=== PATIENT | female | born 1980 | race Two or more races ===

== ENCOUNTER 2021-12-02 06:05 | Inpatient (IN) | payer SELFPAY ==
[~2021-12-02] VITALS: Ht 157.5 cm; Wt 78.2 kg
[2021-12-02] MEDS ORDERED: IV RINGERS,LACTATED 1000ML 1,000 ML IV SCH (06:15)
[2021-12-02 06:45] VITALS: BP 120/72
[2021-12-02] MEDS ORDERED: TERBUTALINE 1 MG/ML VIAL. SQ PRN (06:45)
[2021-12-02] MEDS ORDERED: OXYTOCIN 30 UNIT/500 ML PREMIX 500 ML IV PRN ×3 (06:45→14:30)
[2021-12-02] MEDS ORDERED: fentaNYL PF VIAL 100 MCG/2 ML VIAL IVP PRN (06:45)
[2021-12-02] MEDS ORDERED: LIDOCAINE 1% PF 30 ML VIAL. INJ PRN (06:45)
[2021-12-02] MEDS: IV RINGERS,LACTATED 1000ML 1,000 ML IV SCH ×3 (06:45→22:45)
[2021-12-02] MEDS ORDERED: BUTORPHANOL 2 MG/ML VIAL. IVP PRN ×2 (06:45)
[2021-12-02] MEDS ORDERED: IBUPROFEN 400 MG TABLET. PO PRN (06:45)
[2021-12-02] MEDS ORDERED: 0.9 % SODIUM CHLORIDE 10 ML DISP.SYRIN. IV PRN ×2 (06:45→14:30)
[2021-12-02 07:53] LABS: BASO % 0 % (0-3); EOS % 0 % (0-3); HEMOGLOBIN 7.5 g/dL (12.0-15.5); LYMPH # 0.6 x10^3/uL (1.0-4.8); LYMPH % 7 % (24-48); MEAN CORPUSCULAR HEMOGLOBIN 22 pg (25-35); MEAN CORPUSCULAR HGB CONC 31 g/dL (31-37); MEAN CORPUSCULAR VOLUME 69 fL (79-100); MONO # 0.4 x10^3/uL (0.0-1.1); MONO % 5 % (0-9); NEUT # 6.9 x10^3/uL (1.8-7.7); NEUT % 88 % (31-73); PLATELET COUNT 193 x10^3/uL (140-400); RED BLOOD COUNT 3.51 x10^6/uL (3.50-5.40); RED CELL DISTRIBUTION WIDTH 21.2 % (11.5-14.5); WHITE BLOOD COUNT 7.9 x10^3/uL (4.0-11.0)
[2021-12-02] MEDS ORDERED: OXYTOCIN PREMIX 30 UNIT/500 ML NS BAG. IV ONE (09:30)
[2021-12-02 09:48] LABS: ANISOCYTOSIS PRESENT; MICROCYTOSIS SLIGHT; OVALOCYTES PRESENT; PLT ESTIMATE ADEQUATE (ADEQUATE); POLYCHROMASIA PRESENT
[2021-12-02] MEDS ORDERED: METHYLERGONOVINE MALEATE 0.2 MG/ML VIAL. IM ONE ×2 (10:08→10:30)
[2021-12-02] MEDS ORDERED: miSOPROStol 200 MCG TABLET. ONE (10:08)
[2021-12-02] MEDS ORDERED: miSOPROStol 200 MCG TABLET. PR ONE (10:30)
[2021-12-02 13:40] VITALS: BP 108/68
--- NOTE | 2021-12-02 14:14 | PDOC1 ---
[facility] H&P Date of Admission: Date of Admission: Dec 02, 2021 at 06:15 History of Present Illness: 40yo presents to L&D @ 37.6 weeks with complaints of increased frequency and intensity of UC. SVE upon arrival 3cm with progressive change to 5cm - subsequently admitted for spontaneous labor. complicated by GDM - diet controlled. Late/limited PNC. Anemia. AMA. + Trich 10/03, treated 11/04. Pelvis proven to 7lb 8oz. PMH otherwise unremarkable. Pertinent labs: O+, ab neg. RPR NR. RI. . Hep B/C Neg. HIV Neg. H&H: 7.03/06. GBS unknown. PCN allergic. Past Medical History: PMH: Unremarkable. Cardiovascular: No pertinent hx Pulmonary: No pertinent hx GI: No pertinent hx Heme/Onc: No pertinent hx Hepatobiliary: No pertinent hx Psych: No pertinent hx Rheumatologic: No pertinent hx Infectious disease: No pertinent hx ENT: No pertinent hx Renal/: No pertinent hx Dermatology: No pertinent hx Grav: 4 Para: 3 Social History: Smoke: No ALCOHOL: none Drugs: None Medications: Meds: Current Medications Medications (Trade) Dose Ordered Sig/Su Route PRN Reason Start Time Stop Time Status Last Admin Dose Admin Ringer's Solution 1,000 ml @ 125 mls/hr Q8H IV 12/02/21 06:15 12/02/21 11:05 DC 12/02/21 07:21 Butorphanol Tartrate (Stadol) 1 mg PRN Q1HR PRN IVP mild to moderate labor pain 12/02/21 06:45 12/02/21 11:05 DC 12/02/21 07:37 Fentanyl Citrate (Fentanyl 2ml Vial) 100 mcg PRN Q30MIN PRN IVP Severe pain 12/02/21 06:45 12/02/21 10:21 Lidocaine HCl (Xylocaine 1% Pf 30ml Vial) 30 ml 1X PRN PRN INJ SEE COMMENTS 12/02/21 06:45 12/04/21 06:44 12/02/21 10:29 Ibuprofen (Motrin) 800 mg PRN Q6HRS PRN PO PAIN 12/02/21 06:45 12/02/21 13:50 Misoprostol (Cytotec 200mcg Tab) 800 mcg 1X ONCE RI 12/02/21 10:30 12/02/21 10:31 DC 12/02/21 10:30 Methylergonovine Maleate (Methergine) 0.2 mg 1X ONCE IM 12/02/21 10:30 12/02/21 10:31 DC 12/02/21 10:29 Allergies: Coded Allergies: Penicillins (Verified Allergy, Intermediate, Itching, 12/02/21) amoxicillin (Verified Allergy, Intermediate, Itching, 12/02/21) Physical Exam: Vital Signs: Vital Signs Date Time Temp Pulse Resp B/P (MAP) Pulse Ox O2 Delivery O2 Flow Rate FiO2 12/02/21 10:21 18 Room Air 12/02/21 06:45 98.0 81 120/72 (88) 98.0 PE: GENERAL: No apparent distress. Alert and oriented. HEENT: Head normocephalic, atraumatic. NECK: Supple LUNGS: Clear to auscultation. HEART: RRR, S1, S2 present, pulses intact ABDOMEN: Soft, positive bowel sounds. EXTREMITIES: No cyanosis or edema. NEUROLOGIC: Normal speech, normal tone PSYCHIATRIC: Normal affect, normal mood. SKIN: No ulceration. Labs: Laboratory Tests Test 12/02/21 07:10 12/02/21 08:00 White Blood Count 7.9 x10^3/uL (4.0-11.0) Red Blood Count 3.51 x10^6/uL (3.50-5.40) Hemoglobin 7.5 g/dL (12.0-15.5) L Hematocrit 24.0 % (36.0-47.0) L Mean Corpuscular Volume 69 fL (79-100) L Mean Corpuscular Hemoglobin 22 pg (25-35) L Mean Corpuscular Hemoglobin Concent 31 g/dL (31-37) Red Cell Distribution Width 21.2 % (11.5-14.5) H Platelet Count 193 x10^3/uL (140-400) Neutrophils (%) (Auto) 88 % (31-73) H Lymphocytes (%) (Auto) 7 % (24-48) L Monocytes (%) (Auto) 5 % (0-9) Eosinophils (%) (Auto) 0 % (0-3) Basophils (%) (Auto) 0 % (0-3) Neutrophils # (Auto) 6.9 x10^3/uL (1.8-7.7) Lymphocytes # (Auto) 0.6 x10^3/uL (1.0-4.8) L Monocytes # (Auto) 0.4 x10^3/uL (0.0-1.1) Eosinophils # (Auto) 0.0 x10^3/uL (0.0-0.7) Basophils # (Auto) 0.0 x10^3/uL (0.0-0.2) Platelet Estimate Adequate (ADEQUATE) Polychromasia Present Anisocytosis Present Microcytosis Slight Ovalocytes Present Glucose Level 96 mg/dL (70-99) Treponema pallidum Antibody Nonreactive (Nonreactive) SARS-CoV-2 Antigen (Rapid) Negative (NEGATIVE) Laboratory Tests 12/02/21 07:10 Laboratory Tests 12/02/21 07:10 Laboratory Tests 12/02/21 07:10 Assessment & Plan: 40yo 1. IUP @ 37.6 weeks 2. Spontaneous labor 3. A1GDM, glucose 96 4. + Trich, no ARANZA 5. GBS unknown 6. Declined Flu, TDaP and Covid vaccine 7. Cat I FHT NAM LESLIE Jennifer KENNEDY Dec 02, 2021 14:14
--- NOTE | 2021-12-02 14:20 | PDOC4 ---
VAGINAL DELIVERY DATE DATE: 12/02/21 TIME: 14:14 TIME 0958 : 4 Para: 3 EDC: Dec 09, 2021 EGA: 39.0 VAGINAL DELIVERY: VTX VACCUM ASSISTED: No PLACENTA: Manual SEX: Male WEIGHT Weight [[id number]] Nuchal Cord: No Amniotic Fluid: Clear PAIN: Natural EPISIOTOMY: No REPAIRED WITH 2nd degree perineal lac repaired with 3-0 Vicryl in the standard fashion with complete hemostasis and good anatomic result. EBL 500mL COMPLICATIONS Cord avulsed with gentle traction. Placenta manually removed, appearing grossly intact. MEU performed. Pitocin, Cytotec, and Methergine administered prophylact ically 2/2 significant anemia and manual removal of placenta. Fundus firm, scant lochia. CONDITION Both mother and infant stable following delivery, anticipate routine PP course. ADDITIONAL NOTES Placenta to path 2/2 irregular shape, marginal cord insertion site. Signs of Intrauterine Infectio: None Shoulder Dystocia: No DIAGNOSIS NAM LESLIE CNM Dec 02, 2021 14:20
[2021-12-02] MEDS ORDERED: MAGNESIUM HYDROXIDE 2,400 MG/30 ML ORAL.SUSP. PO PRN (14:30)
[2021-12-02] MEDS ORDERED: TDaP (BOOSTRIX) per PROTOCOL. MC PRN (14:30)
[2021-12-02] MEDS ORDERED: ACETAMINOPHEN 325 MG TABLET. PO PRN (14:30)
[2021-12-02] MEDS ORDERED: BENZOCAINE 20% TOPICAL AEROSOL SPRAY 57GM CAN. TP PRN (14:30)
[2021-12-02] MEDS ORDERED: HYDROCORTISONE 1% TOPICAL OINTMENT 30GM TUBE. TP PRN (14:30)
[2021-12-02] MEDS ORDERED: SIMETHICONE 80 MG TAB.CHEW PO PRN (14:30)
[2021-12-02] MEDS ORDERED: MMR per PROTOCOL. MC PRN (14:30)
[2021-12-02] MEDS ORDERED: oxyCODONE/APAP 5/325 1 TAB TABLET PO PRN (14:30)
[2021-12-02] MEDS ORDERED: diphenhydrAMINE HCL 25 MG CAPSULE PO PRN (14:30)
[2021-12-02] MEDS ORDERED: PHENYLEPH/MINERAL OIL/PETROLAT RECTAL OINTMENT TUBE. RC PRN (14:30)
[2021-12-02] MEDS ORDERED: MAG HYDROX/ALUMINUM HYD/SIMETH 30 ML ORAL.SUSP PO PRN (14:30)
[2021-12-02 18:00] VITALS: BP 99/63
[2021-12-02] MEDS: FERROUS SULFATE 325 MG TABLET. PO SCH (18:31)
[2021-12-02] MEDS: METHYLERGONOVINE MALEATE 0.2 MG TABLET PO SCH (18:31)
[2021-12-02] MEDS: DOCUSATE SODIUM 100 MG CAPSULE. PO PRN (18:31)
[2021-12-02 20:00] VITALS: BP 108/54
[2021-12-03] VITALS (13 sets, daily range): BP systolic 89–114; BP diastolic 53–71
[2021-12-03] MEDS: METHYLERGONOVINE MALEATE 0.2 MG TABLET PO SCH ×3 (00:12→12:01)
[2021-12-03] MEDS: IBUPROFEN 400 MG TABLET. PO PRN ×3 (00:14→22:21)
[2021-12-03 03:09] LABS: HEMOGLOBIN A1C 5.3 % (4.8-5.6)
[2021-12-03] MEDS: DOCUSATE SODIUM 100 MG CAPSULE. PO PRN ×2 (06:29→22:21)
[2021-12-03] MEDS: IV RINGERS,LACTATED 1000ML 1,000 ML IV SCH ×3 (06:45→22:45)
[2021-12-03 07:15] LABS: BASO % 0 % (0-3); EOS % 0 % (0-3); HEMATOCRIT 21.2 % (36.0-47.0); LYMPH # 1.1 x10^3/uL (1.0-4.8); LYMPH % 14 % (24-48); MEAN CORPUSCULAR HEMOGLOBIN 21 pg (25-35); MEAN CORPUSCULAR HGB CONC 31 g/dL (31-37); MEAN CORPUSCULAR VOLUME 70 fL (79-100); MONO # 0.4 x10^3/uL (0.0-1.1); MONO % 6 % (0-9); NEUT # 6.1 x10^3/uL (1.8-7.7); NEUT % 80 % (31-73); PLATELET COUNT 173 x10^3/uL (140-400); RED BLOOD COUNT 3.05 x10^6/uL (3.50-5.40); WHITE BLOOD COUNT 7.6 x10^3/uL (4.0-11.0)
[2021-12-03 07:20] LABS: HEMOGLOBIN 6.5 g/dL (12.0-15.5)
[2021-12-03] MEDS: MULTIVITAMIN with MINERAL TABLET. PO SCH (08:32)
[2021-12-03] MEDS: FERROUS SULFATE 325 MG TABLET. PO SCH ×3 (08:32→17:00)
[2021-12-03] MEDS: oxyCODONE/APAP 5/325 1 TAB TABLET PO PRN ×2 (08:36→14:19)
--- NOTE | 2021-12-03 09:35 | PDOC ---
[employer] PROGRESS NOTE Date of Service: DATE: 12/03/21 TIME: 09:34 Subjective: Pt with good pain control. Samira PO. Voiding. Minimal lochia. Objective: Vital Signs: Vital Signs Date Time Temp Pulse Resp B/P (MAP) Pulse Ox O2 Delivery O2 Flow Rate FiO2 12/02/21 07:37 20 12/02/21 10:21 Room Air 12/02/21 13:40 98.0 80 108/68 (81) 98.0 12/02/21 20:00 95 Vital Signs Date Time Temp Pulse Resp B/P (MAP) Pulse Ox O2 Delivery O2 Flow Rate FiO2 12/03/21 08:36 16 Room Air 12/03/21 07:45 98.5 77 102/70 (81) 99 98.5 Labs: Laboratory Tests Test 12/03/21 06:40 White Blood Count 7.6 x10^3/uL (4.0-11.0) Red Blood Count 3.05 x10^6/uL (3.50-5.40) L Hemoglobin 6.5 g/dL (12.0-15.5) *L Hematocrit 21.2 % (36.0-47.0) L Mean Corpuscular Volume 70 fL (79-100) L Mean Corpuscular Hemoglobin 21 pg (25-35) L Mean Corpuscular Hemoglobin Concent 31 g/dL (31-37) Red Cell Distribution Width 22.0 % (11.5-14.5) H Platelet Count 173 x10^3/uL (140-400) Neutrophils (%) (Auto) 80 % (31-73) H Lymphocytes (%) (Auto) 14 % (24-48) L Monocytes (%) (Auto) 6 % (0-9) Eosinophils (%) (Auto) 0 % (0-3) Basophils (%) (Auto) 0 % (0-3) Neutrophils # (Auto) 6.1 x10^3/uL (1.8-7.7) Lymphocytes # (Auto) 1.1 x10^3/uL (1.0-4.8) Monocytes # (Auto) 0.4 x10^3/uL (0.0-1.1) Eosinophils # (Auto) 0.0 x10^3/uL (0.0-0.7) Basophils # (Auto) 0.0 x10^3/uL (0.0-0.2) Laboratory Tests 12/03/21 06:40 Laboratory Tests 12/03/21 06:40 Physical Exam: GENERAL: No apparent distress. Alert and oriented. HEENT: Head normocephalic, atraumatic. NECK: Supple LUNGS: Clear to auscultation. HEART: RRR, S1, S2 present, pulses intact ABDOMEN: Soft, positive bowel sounds. EXTREMITIES: No cyanosis or edema. NEUROLOGIC: Normal speech, normal tone PSYCHIATRIC: Normal affect, normal mood. SKIN: No ulceration. FFNT below umb No C/C/E Assessment & Plan: A/P 40y PPD #1 s/p 1.) PP doing well 2.) Mild ventriculomegaly peds aware 3.) Anemia - Hgb 7.5 -> 6.5, will give 1U pRBC 4.) PCN All 5.) A1DM 6.) cHTN - BP nml to mild throughout hospitalization 7.) Cont PP care NATA ALTMAN MD Dec 03, 2021 09:35
[2021-12-03 18:15] LABS: BASO % 0 % (0-3); EOS % 0 % (0-3); HEMOGLOBIN 8.7 g/dL (12.0-15.5); LYMPH # 1.2 x10^3/uL (1.0-4.8); LYMPH % 13 % (24-48); MEAN CORPUSCULAR HEMOGLOBIN 23 pg (25-35); MEAN CORPUSCULAR HGB CONC 32 g/dL (31-37); MEAN CORPUSCULAR VOLUME 71 fL (79-100); MONO # 0.5 x10^3/uL (0.0-1.1); MONO % 5 % (0-9); NEUT # 7.2 x10^3/uL (1.8-7.7); NEUT % 81 % (31-73); PLATELET COUNT 214 x10^3/uL (140-400); RED BLOOD COUNT 3.79 x10^6/uL (3.50-5.40); RED CELL DISTRIBUTION WIDTH 22.5 % (11.5-14.5); WHITE BLOOD COUNT 8.9 x10^3/uL (4.0-11.0)
[2021-12-04 04:48] VITALS: BP 87/56
--- NOTE | 2021-12-04 04:56 | NUR ---
Patient found sleeping in bed with wedged between her and a pillow. Infants face was against mothers bare breast. Patient told earlier in the night that she needed to put baby in crib if she gets tired. Woke up patient and told her that she can not sleep with baby and took baby and placed him in his crib. I then told her I was taking him to the nursery to do his labs. Pt instructed to get sleep while the was in nursery. Provided pt with PKU information sheet (in Slovak) that I printed of the [facility] website.
[2021-12-04] MEDS: MULTIVITAMIN with MINERAL TABLET. PO SCH (08:58)
[2021-12-04] MEDS: IBUPROFEN 400 MG TABLET. PO PRN (08:59)
[2021-12-04] MEDS: FERROUS SULFATE 325 MG TABLET. PO SCH (08:59)
[2021-12-04 09:20] VITALS: BP 100/69
[2021-12-04] MEDS ORDERED: DOCU-109 PO (10:00)
[2021-12-04] MEDS ORDERED: FERR325T14 PO (10:00)
[2021-12-04] MEDS ORDERED: IBUP-1060 PO (10:00)
[2021-12-04 10:39] LABS: BASO % 1 % (0-3); EOS % 1 % (0-3); HEMOGLOBIN 7.5 g/dL (12.0-15.5); LYMPH # 0.8 x10^3/uL (1.0-4.8); LYMPH % 11 % (24-48); MEAN CORPUSCULAR HEMOGLOBIN 23 pg (25-35); MEAN CORPUSCULAR HGB CONC 32 g/dL (31-37); MEAN CORPUSCULAR VOLUME 72 fL (79-100); MONO # 0.3 x10^3/uL (0.0-1.1); MONO % 4 % (0-9); NEUT # 6.1 x10^3/uL (1.8-7.7); NEUT % 84 % (31-73); PLATELET COUNT 216 x10^3/uL (140-400); RED BLOOD COUNT 3.35 x10^6/uL (3.50-5.40); RED CELL DISTRIBUTION WIDTH 22.2 % (11.5-14.5); WHITE BLOOD COUNT 7.2 x10^3/uL (4.0-11.0)
--- NOTE | 2021-12-04 11:01 | PDOC ---
[employer] PROGRESS NOTE Date of Service: DATE: 12/04/21 TIME: 11:01 Subjective: Pt with good pain control. Samira PO. Voiding. Minimal lochia. Objective: Vital Signs: Vital Signs Date Time Temp Pulse Resp B/P (MAP) Pulse Ox O2 Delivery O2 Flow Rate FiO2 12/03/21 07:45 98.5 77 16 102/70 (81) 99 Room Air 98.5 Vital Signs Date Time Temp Pulse Resp B/P (MAP) Pulse Ox O2 Delivery O2 Flow Rate FiO2 12/04/21 09:20 98.3 87 100/69 (79) 95 Room Air 98.3 12/04/21 04:48 16 Labs: Laboratory Tests Test 12/03/21 18:00 12/04/21 10:25 White Blood Count 8.9 x10^3/uL (4.0-11.0) 7.2 x10^3/uL (4.0-11.0) Red Blood Count 3.79 x10^6/uL (3.50-5.40) 3.35 x10^6/uL (3.50-5.40) L Hemoglobin 8.7 g/dL (12.0-15.5) L 7.5 g/dL (12.0-15.5) L Hematocrit 27.0 % (36.0-47.0) L 24.0 % (36.0-47.0) L Mean Corpuscular Volume 71 fL (79-100) L 72 fL (79-100) L Mean Corpuscular Hemoglobin 23 pg (25-35) L 23 pg (25-35) L Mean Corpuscular Hemoglobin Concent 32 g/dL (31-37) 32 g/dL (31-37) Red Cell Distribution Width 22.5 % (11.5-14.5) H 22.2 % (11.5-14.5) H Platelet Count 214 x10^3/uL (140-400) 216 x10^3/uL (140-400) Neutrophils (%) (Auto) 81 % (31-73) H 84 % (31-73) H Lymphocytes (%) (Auto) 13 % (24-48) L 11 % (24-48) L Monocytes (%) (Auto) 5 % (0-9) 4 % (0-9) Eosinophils (%) (Auto) 0 % (0-3) 1 % (0-3) Basophils (%) (Auto) 0 % (0-3) 1 % (0-3) Neutrophils # (Auto) 7.2 x10^3/uL (1.8-7.7) 6.1 x10^3/uL (1.8-7.7) Lymphocytes # (Auto) 1.2 x10^3/uL (1.0-4.8) 0.8 x10^3/uL (1.0-4.8) L Monocytes # (Auto) 0.5 x10^3/uL (0.0-1.1) 0.3 x10^3/uL (0.0-1.1) Eosinophils # (Auto) 0.0 x10^3/uL (0.0-0.7) 0.0 x10^3/uL (0.0-0.7) Basophils # (Auto) 0.0 x10^3/uL (0.0-0.2) 0.0 x10^3/uL (0.0-0.2) Laboratory Tests 12/03/21 18:00 12/04/21 10:25 Laboratory Tests 12/04/21 10:25 Physical Exam: GENERAL: No apparent distress. Alert and oriented. HEENT: Head normocephalic, atraumatic. NECK: Supple LUNGS: Clear to auscultation. HEART: RRR, S1, S2 present, pulses intact ABDOMEN: Soft, positive bowel sounds. EXTREMITIES: No cyanosis or edema. NEUROLOGIC: Normal speech, normal tone PSYCHIATRIC: Normal affect, normal mood. SKIN: No ulceration. FFNT below umb No C/C/E Assessment & Plan: A/P 40y PPD #2 s/p 1.) PP doing well 2.) Mild ventriculomegaly peds aware 3.) Anemia - Hgb 7.5 -> 6.5 -> 1U pRBC -> 7.5 4.) PCN All 5.) A1DM 6.) cHTN - BP nml to mild throughout hospitalization 7.) D/c home NATA ALTMAN MD Dec 04, 2021 11:01
--- NOTE | 2021-12-04 11:13 | NUR ---
Dr. Mcgee paged and returned call about CBC results, states looked at labs and discharge pt to home
[2021-12-04 14:45] VITALS: BP 106/48
--- NOTE | 2021-12-04 15:00 | NUR ---
Pt. was given verbal and written discharge instructions. Pt. verbalized understanding without any questions or concerns. Pt. verbalized understanding about all follow up appointments with two appointment for NB: 12/06/21 Dr. Vela at 11:00 for NB follow up 12/13/21 1:30 for head ultrasound of NB at [facility] 01/11/22 2:00 at [facility] for PP follow up. Pt. verbalized understanding. Pt. was given NB care book and explained how to use the book. Pt escorted to unit exit with NB in secure carseat. VSS and pt and NB in stable condition.
--- NOTE | 2021-12-06 20:08 | PATHOLOGY ---
[facility] Accession Number: [id number] . 01 Material submitted: . placenta - PLACENTA AND CORD- MANUAL REMOVAL . 01 Clinical history: . VAG DEF . 02 Diagnosis: Placenta, vaginal delivery: - Mature hawkins placenta weighing 405 grams (approximately the 20th percentile for a 39-week gestation). - Focally thin (0.9 cm in diameter) three-vessel umbilical cord with margin insertion into the chorionic plate and remnant allantoic ducts. - Chronic lymphoplasmacytic deciduitis. - Meconium staining of membranes. - Decidual pseudocyst formation. 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 - Villous dysmaturity. - Increased number of nucleated red blood cells within vascular spaces. (MATTYK:brenna; 12/06/2021) MBR 12/06/2021 1919 Local . 02 Electronically signed: . Georgi Cano MD, Pathologist NPI- [id number] . 01 Gross description: . Fixative: Formalin Labeled: Placenta Specimen received: A hawkins placenta that is most likely all present and is received with the umbilical cord and membranes previously removed Trimmed placental weight: 405 g Umbilical cord dimensions: 40.5 cm in length, ranging from 0.9 cm to 1.5 cm in diameter Umbilical cord insertion: Marginally, approximately 0.7 cm from the nearest placental edge Number of umbilical vessels: 3 Umbilical cord appearance: Duggan-hutchinson, smooth and unremarkable Placenta dimensions: 17.5 x 14.5 x 2.9 cm surface: Blue- purple and smooth with 2 focal chorionic plate disruptions (2.0 x 0.9 cm each) and with fewer and smaller than usual arborizing vasculature Maternal surface: Duggan-brown and lobular with approximately 5% focal disruption Cut surfaces: Kathryn-brown, spongy and unremarkable without discrete lesions Abnormalities: None membranes: Insert predominantly marginally with approximately 25% circummarginate insertion, are hutchinson-duggan, thin and translucent . Barmaid sections are submitted as follows: A1: Umbilical cord, represented A2: membranes, represented A3-A4: Sections to show maternal and surfaces, represented A5: Maternal surfaces shavings to show areas of disruption, represented ([place]; 12/04/2021) DKA/DKA 12/04/2021 1543 Local . 02 Pathologist provided ICD-10: O43.893, O77.0, Z37.0, Z3A.39 . 02 CPT . 202935 Specimen Comment: A courtesy copy of this report has been sent to [phone] Specimen Comment: Report sent to Performed at: 01 [facility] [address] [place] [address] [id number] MD Alexx Mccarthy MD Phone: [phone] Performed at: [address] [id number] MD Galdino Natarajan MD Phone: [phone]
== END 2021-12-04 15:15 | disposition home or self-care (01) | DRG 806 ==
LOC: 3 SO LND 06:05 → UNDOADMOB 06:05 → OBSVTOIN 06:15 → 3 SO LND 06:15
PROVIDERS: ADMIT Obstetrics & Gynecology; ATTEND Obstetrics & Gynecology
PROC: 0KQM0ZZ Repair Perineum Muscle, Open Approach (ICD-10-PCS; principal; 2021-12-02)
PROC: 10E0XZZ Delivery of Products of Conception, External Approach (ICD-10-PCS; 2021-12-02)
PROC: 30233N1 Transfusion of Nonautologous Red Blood Cells into Peripheral Vein, Percutaneous Approach (ICD-10-PCS; 2021-12-02)
PROC: 3E0DXGC Introduction of Other Therapeutic Substance into Mouth and Pharynx, External Approach (ICD-10-PCS; 2021-12-02)
PROC: 3E033VJ Introduction of Other Hormone into Peripheral Vein, Percutaneous Approach (ICD-10-PCS; 2021-12-02)
DX: O24.420 Gestational diabetes mellitus in childbirth, diet controlled (principal); O10.92 Unspecified pre-existing hypertension complicating childbirth; Z37.0 Single live birth; O99.02 Anemia complicating childbirth; Z3A.37 37 weeks gestation of pregnancy; Z88.0 Allergy status to penicillin; D64.9 Anemia, unspecified; O70.1 Second degree perineal laceration during delivery; Z20.822 Contact with and (suspected) exposure to COVID-19
CPT/HCPCS: 36415; 36430; 82947; 83036; 85025; 86592; 86850; 86900; 86901; 86920; 87426; 88307; G0378; J0595; J2210; J2590; J3010; J3490; J7120; P9016; U0003